=== PATIENT | female | born 1975 | race Caucasian/White ===

== ENCOUNTER 2016-07-05 09:57 | Emergency (ER) | payer OTHER, MEDICAID ==
--- NOTE | 2016-07-05 10:10 | ER Document Report ---
ED Medical Screen (RME) - General Stated Complaint: TOE PAIN Notes: 41 yo female c/o left great toe pain. dropped 37in TV on toe yesterday. painful to move. + soft tissue swelling. no deformity TRAVEL OUTSIDE OF THE [place] IN LAST 30 DAYS: No - Related Data Allergies/Adverse Reactions: No Known Allergies Allergy (Verified 06/23/13 11:26) Past Medical History - Past Medical History Cardiac Medical History: Reports: Hx Hypertension Musculoskeltal Medical History: Reports Hx Arthritis Psychiatric Medical History: Reports: Hx Anxiety, Hx Bipolar Disorder, Hx Depression - anxiety Past Surgical History: Reports: Hx Section - x2, Hx Tubal Ligation - Immunizations Immunizations up to date: Yes Hx Diphtheria, Pertussis, Tetanus Vaccination: Yes - unknown Physical Exam - Vital signs Vitals: Temp Pulse Resp BP Pulse Ox 98.1 F 82 16 113/70 100 07/05/16 10:04 07/05/16 10:04 07/05/16 10:04 07/05/16 10:04 07/05/16 10:04 Course - Vital Signs Vital signs: Temp Pulse Resp BP Pulse Ox 98.1 F 82 16 113/70 100 07/05/16 10:04 07/05/16 10:04 07/05/16 10:04 07/05/16 10:04 07/05/16 10:04
[2016-07-05] MEDS ORDERED: NAPROXEN 375 MG TABLET PO ONE (11:11)
--- NOTE | 2016-07-05 11:11 | ER Document Report ---
ED General - General Chief Complaint: Toe Injury Stated Complaint: TOE PAIN Mode of Arrival: Ambulatory Information source: Patient Notes: Patient is a 41 yo female who presents with 1 day history of left great toe injury. 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 She endorses swelling and bruising. Pain worse with ambulation. She has tried ice, tylenol and ibuprofen with no relief. TRAVEL OUTSIDE OF THE [place] IN LAST 30 DAYS: No - Related Data Allergies/Adverse Reactions: No Known Allergies Allergy (Verified 07/05/16 10:10) Home Medications: Current Home Medications Carisoprodol [Soma] 250 mg PO 07/05/16 [History] [place] Carbonate [Lithobid 150 mg Capsule] 150 mg PO 07/05/16 [History] Past Medical History - Social History Smoking Status: Never Smoker Chew tobacco use (# tins/day): No Frequency of alcohol use: None Drug Abuse: None Family History: Reviewed & Not Pertinent Patient has suicidal ideation: No Patient has homicidal ideation: No - Past Medical History Cardiac Medical History: Reports: Hx Hypertension Renal/ Medical History: Denies: Hx Peritoneal Dialysis Musculoskeltal Medical History: Reports Hx Arthritis Psychiatric Medical History: Reports: Hx Anxiety, Hx Bipolar Disorder, Hx Depression - anxiety Past Surgical History: Reports: Hx Section - x2, Hx Tubal Ligation - Immunizations Immunizations up to date: Yes Hx Diphtheria, Pertussis, Tetanus Vaccination: Yes - unknown Review of Systems - Review of Systems Constitutional: No symptoms reported EENT: No symptoms reported Cardiovascular: No symptoms reported Respiratory: No symptoms reported Gastrointestinal: No symptoms reported Genitourinary: No symptoms reported Female Genitourinary: No symptoms reported Musculoskeletal: See HPI Skin: See HPI Hematologic/Lymphatic: No symptoms reported Neurological/Psychological: No symptoms reported Physical Exam - Vital signs Vitals: Temp Pulse Resp BP Pulse Ox 98.1 F 82 16 113/70 100 07/05/16 10:04 07/05/16 10:04 07/05/16 10:04 07/05/16 10:04 07/05/16 10:04 - Notes Notes: PHYSICAL EXAM: CONSTITUTIONAL: Alert and oriented, well-appearing and in no acute distress. HENT: Normocephalic, atraumatic. Moist mucous membranes. HEART: Regular rate and rhythm without murmurs. LUNGS: CTAB and equal. No wheezes, rales or rhonchi. EXTREMITIES: Normal range of motion, no pitting edema. No cyanosis. Cap Refill < 3 seconds. Left great toe and 2nd toe - tender to palpation at MTP joint with ecchymosis noted between 1st and 2nd digit. ROM intact with flexion and extension of toes, distal pulses intact. NEURO: Cranial nerves grossly intact. Normal sensory/motor exams. SKIN: Warm and dry. Normal turgor. No rashes or lesions noted. Course - Re-evaluation Re-evalutation: 07/05/16 11:11 Patient seen and examined. Ecchymosis present but no obvious deformity. Xrays pending. 07/05/16 11:33 Reviewed xrays - hairline non-displaced acute fracture through tuft of great toe distal phalanx. Reviewed with patient. Will provide splint/post-op shoe, pain medication and discussed orthopedics follow-up. Discharged home in stable condition. Follow-up instructions provided, return precautions discussed. Patient in verbal agreement with follow-up plan. - Vital Signs Vital signs: Temp Pulse Resp BP Pulse Ox 98.1 F 82 16 113/70 100 07/05/16 10:04 07/05/16 10:04 07/05/16 10:04 07/05/16 10:04 07/05/16 10:04 - Diagnostic Test Radiology reviewed: Image reviewed, Reports reviewed Procedures - Immobilization Left Foot Pre-Proc Neuro Vasc Exam: Normal Immobilizer type: Post-op shoe Performed by: PCT Post-Proc Neuro Vasc Exam: Normal Alignment checked and good: Yes Discharge - Discharge Clinical Impression: Fracture of distal phalanx of toe of left foot Condition: Stable Disposition: HOME, SELF-CARE Additional Instructions: Fractured Toe You have fractured your toe. Although this fracture doesn't need a cast or splint, emergency evaluation was needed to assess the straightness of the bones and joints. Reduction ("setting") is necessary for toe fractures which are crooked or twisted. A toe fracture will heal in about three weeks. Usually, the fractured toe is taped to the next toe. The second toe acts as a moving splint to protect the broken one. Ice and elevation help during the first 48 hours. You may need crutches at first if walking is painful. When you begin walking, be careful NOT to do things that hurt. If weight bearing is not comfortable within a few days, you may require a special shoe, walking boot, or cast. Call the doctor or return at once if severe swelling, severe pain, or numbness develop in the toe, or if you suspect you may have re-injured it. Narcotic Medication You have been given a prescription for pain control. This medication is a narcotic. It's best taken with food, as nausea can result if taken on an empty stomach. Don't operate machinery or drive within six hours of taking this medication. Do not combine this medicine with alcohol, or with any medication which can cause sedation (such as cold tablets or sleeping pills) unless you get permission from the physician. Narcotics tend to cause constipation. If possible, drink plenty of fluids and eat a diet high in fiber and fruits. Please be aware that prescription narcotics also have the potential for abuse. People become addicted to these medications because of the general sense of wellbeing that they induce. This feeling along with a significant reduction in tension, anxiety, and aggression provides a stimulating seductive quality to these drugs. Once your pain is under control, we encourage you to discard your unused narcotics. Use of Crutches The doctor has recommended that you not bear weight at this time. You will need to use crutches. Adjust the crutches so the tops come to about two inches under the armpit while you are standing upright. Use your hands -- not your armpits -- to support your weight. To get into a chair, support yourself with one crutch on the injured side. Hold the chair with the other hand, then lower yourself while putting all your weight on the good leg. Going up stairs is `good leg up, step up, then bring up crutches and bad leg.' Down stairs is `bad leg and crutches down, then bring good leg down.' If you develop numbness or swelling in an arm or hand, you are using the crutches incorrectly. Return if you are having any problems with the crutches. Follow-Up Care Call the local orthopedics office (contact information as been provided for you) to schedule follow-up appointment in the next 1-2 days. You should return if there is unexpected worsening or a significant change in your symptoms. Prescriptions: Hydrocodone/Acetaminophen [[place] 5-325 mg Tablet] 1 tab PO Q6H PRN #10 tablet PRN Reason: Pain Scale Of 4 Referrals: KIMBERLY GILMORE MD [ACTIVE STAFF] - Follow up in 3-5 days (Call today to schedule follow-up appointment. )
[2016-07-05 12:04] VITALS: BP 139/88
== END 2016-07-05 12:20 | disposition home or self-care (01) ==
LOC: ER 09:57
DX: S92.425A Nondisplaced fracture of distal phalanx of left great toe, initial encounter for closed fracture (principal); W20.8XXA Other cause of strike by thrown, projected or falling object, initial encounter; I10 Essential (primary) hypertension; Z98.51 Tubal ligation status
CPT/HCPCS: 99283; 73630; J3490

== ENCOUNTER 2016-07-07 12:23 | Emergency (ER) | payer OTHER, MEDICAID ==
[2016-07-07 12:27] VITALS: BP 130/86
--- NOTE | 2016-07-07 12:57 | ER Document Report ---
ED Medical Screen (RME) - General Stated Complaint: FOOT PAIN Notes: Patient states she was seen 3 days ago and has a toe fracture. Was given [place] , and is out of pain medications. No new injury. has an appointment with orthopedics on July 12. Patient has been prescribed tramadol with [address] Beltre since seen in the emergency room. I have greeted and performed a rapid initial assessment of this patient. A comprehensive ED assessment and evaluation of the patient, analysis of test results and completion of the medical decision making process will be conducted by additional ED providers. TRAVEL OUTSIDE OF THE [place] IN LAST 30 DAYS: No - Related Data Allergies/Adverse Reactions: No Known Allergies Allergy (Verified 07/07/16 12:54) Past Medical History - Past Medical History Cardiac Medical History: Reports: Hx Hypertension Renal/ Medical History: Denies: Hx Peritoneal Dialysis Musculoskeltal Medical History: Reports Hx Arthritis Psychiatric Medical History: Reports: Hx Anxiety, Hx Bipolar Disorder, Hx Depression - anxiety Past Surgical History: Reports: Hx Section - x2, Hx Tubal Ligation - Immunizations Immunizations up to date: Yes Hx Diphtheria, Pertussis, Tetanus Vaccination: Yes - unknown Physical Exam - Vital signs Vitals: Temp Pulse Resp BP Pulse Ox 98.3 F 67 14 130/86 H 98 07/07/16 12:27 07/07/16 12:07/07/16 12:07/07/16 12:27 07/07/16 12:27 - Extremities Notes: Mild edema noted to left great toe. No bruising at distal toe where pt states fx is. There is some bruising at the base of the first and second toe on top of foot. Course - Vital Signs Vital signs: Temp Pulse Resp BP Pulse Ox 98.3 F 67 14 130/86 H 98 07/07/16 12:27 07/07/16 12:27 07/07/16 12:27 07/07/16 12:27 07/07/16 12:27
--- NOTE | 2016-07-07 15:45 | ER Document Report ---
ED Extremity Problem, Lower - General Chief Complaint: Foot Injury Stated Complaint: FOOT PAIN Time seen by provider: 15:32 Mode of Arrival: Ambulatory Information source: Patient Notes: 41-year-old female presents to ED for continued pain in her left great toe. She was in the emergency room 3 days ago for a fracture of her left great toe tuft. She states she was only given 10 of the [place] when she was seen on the . She states she cannot get into orthopedics until July 12. She is requesting more [place] for her toe pain. Patient received a prescription for tramadol 50 mg 20 pills with 4 refills on 07/03/2016. TRAVEL OUTSIDE OF THE [place] IN LAST 30 DAYS: No - HPI Patient complains to provider of: Injury, Pain Location: Great Toe - Left Occurred: Other - July 05 Where: Home Onset/Duration: Persistent Quality of pain: Sharp, Throbbing Severity: Severe Pain Level: 5 Context: Other - TV fell on her great toe on July 05 Recent injury: Yes Associated symptoms: Other - Pain continues in her great toe states she is out of her [place] Exacerbated by: Movement, Walking Relieved by: Elevation, Ice, Rest - Related Data Allergies/Adverse Reactions: No Known Allergies Allergy (Verified 07/07/16 12:54) Past Medical History - General Information source: Patient - Social History Smoking Status: Current Every Day Smoker Cigarette use (# per day): Yes Chew tobacco use (# tins/day): No Smoking Education Provided: Yes - less than 2 minutes Frequency of alcohol use: None Drug Abuse: None Lives with: Family Family History: Reviewed & Not Pertinent Patient has suicidal ideation: No Patient has homicidal ideation: No - Past Medical History Cardiac Medical History: Reports: Hx Hypertension Pulmonary Medical History: Reports: None EENT Medical History: Reports: None Neurological Medical History: Reports: None Endocrine Medical History: Reports: None Renal/ Medical History: Reports: None Malignancy Medical History: Reports: None GI Medical History: Reports: None Musculoskeltal Medical History: Reports Hx Arthritis, Reports Hx Musculoskeletal Trauma - Left great toe fracture July 05 Skin Medical History: Reports None Psychiatric Medical History: Reports: Hx Anxiety, Hx Bipolar Disorder, Hx Depression - anxiety Traumatic Medical History: Reports: Hx Fractures - Left great toe Infectious Medical History: Reports: None Past Surgical History: Reports: Hx Section - x2, Hx Tubal Ligation - Immunizations Immunizations up to date: Yes Hx Diphtheria, Pertussis, Tetanus Vaccination: Yes - unknown Review of Systems - Review of Systems Constitutional: No symptoms reported EENT: No symptoms reported Cardiovascular: No symptoms reported Respiratory: No symptoms reported Gastrointestinal: No symptoms reported Genitourinary: No symptoms reported Female Genitourinary: No symptoms reported Musculoskeletal: Other - Left great toe tender swelling Skin: Other - Minimal bruising to left great toe Hematologic/Lymphatic: No symptoms reported Neurological/Psychological: No symptoms reported -: Yes All other systems reviewed and negative Physical Exam - Vital signs Vitals: Temp Pulse Resp BP Pulse Ox 98.3 F 67 14 130/86 H 98 07/07/16 12:27 07/07/16 12:27 07/07/16 12:27 07/07/16 12:27 07/07/16 12:27 Interpretation: Normal - General General appearance: Appears well, Alert - HEENT Head: Normocephalic, Atraumatic Eyes: Normal Pupils: PERRL - Respiratory Respiratory status: No respiratory distress Chest status: Nontender Breath sounds: Normal Chest palpation: Normal - Cardiovascular Rhythm: Regular Heart sounds: Normal auscultation Murmur: No - Abdominal Inspection: Normal Distension: No distension Bowel sounds: Normal Tenderness: Nontender Organomegaly: No organomegaly - Back Back: Normal, Nontender - Extremities General upper extremity: Normal inspection, Nontender, Normal color, Normal ROM , Normal temperature General lower extremity: Normal inspection, Nontender, Normal color, Normal ROM , Normal temperature, Normal weight bearing. No: Junior's sign - Neurological Neuro grossly intact: Yes Cognition: Normal Orientation: AAOx4 [place] Coma Scale Eye Opening: Spontaneous [place] Coma Scale Verbal: Oriented [place] Coma Scale Motor: Obeys Commands [place] Coma Scale Total: 15 Speech: Normal Motor strength normal: LUE, RUE, LLE, RLE Sensory: Normal - Psychological Associated symptoms: Normal affect, Normal mood - Skin Skin Temperature: Warm Skin Moisture: Dry Skin Color: Normal, Ecchymosis - Minimal left great toe Irregularity with: Swelling - Minimal left great toe, Tenderness Course - Re-evaluation Re-evalutation: 07/07/16 15:53 Reviewed patient's x-ray with her from 3 days ago. Then reviewed her medication that she received on the eighth. And then I reviewed her prescriptions for refill for Ultram on 07/03/2016. I informed patient I was not able to give her anymore narcotics for her fractured toe from on the eighth. Encourage patient to use elevation and ice and rest her toe for her complaint. Patient to keep her appointment with orthopedics. - Vital Signs Vital signs: Temp Pulse Resp BP Pulse Ox 98.3 F 67 14 130/86 H 98 07/07/16 12:27 07/07/16 12:27 07/07/16 12:27 07/07/16 12:27 07/07/16 12:27 Discharge - Discharge Clinical Impression: Fracture of distal phalanx of toe of left foot Condition: Stable Disposition: HOME, SELF-CARE Additional Instructions: You were seen today for continued pain in your left great toe from the fracture 4 days ago. You have a prescription of tramadol that she received from Dr. Beltre 50 mg 20 over them with 4 refills I cannot give you more narcotics. ICE & ELEVATION: Apply ice packs frequently against the painful area. Many different schedules are recommended, such as "20 minutes on, 20 minutes off" or "one hour ice, two hours rest." If you need to work, you may need to go longer between ice treatments. You should plan to have the area ice packed AT LEAST one- fourth of the time. The ice should be applied over the wrap, tape, or splint, or over a layer of cloth -- not directly against the skin. Some ice bags have a built-in cloth and can be put directly on the skin. Your injured part should be elevated as much as possible over the next 48 hours. Try to keep the injury above the level of the heart. Avoid use of the injured area. Elevation and rest will decrease the swelling. USE OF [id number] IBUPROFEN: Ibuprofen (Advil, Nuprin, Medipren, Motrin IB) is a medication for fever and pain control. In addition, it has anti- inflammatory effects which may be beneficial, especially in the treatment of injuries. It's best to take ibuprofen with food. Persons with ulcer disease or allergy to aspirin should notify their physician of this before taking ibuprofen. Ibuprofen can be given every four to six hours, for a total of four doses daily. Age Pain or fever dose Antiinflammatory dose 6-8 yr 200 mg (1 tab) 200 mg (1 tab) 9-11 yr 200 mg (1 tab) 200-400 mg (1-2 tab) 11-14 yr 200-400 mg (1-2 tab) 400 mg (2 tab) 15-adult 400 mg (2 tab) 600 mg (3 tab) FOLLOW-UP CARE: If you have been referred to a physician for follow-up care, call the physician s office for an appointment as you were instructed or within the next two days. If you experience worsening or a significant change in your symptoms, notify the physician immediately or return to the Emergency Department at any time for re-evaluation.
== END 2016-07-07 15:49 | disposition home or self-care (01) ==
LOC: ER 12:23
DX: S92.422A Displaced fracture of distal phalanx of left great toe, initial encounter for closed fracture (principal); W20.8XXA Other cause of strike by thrown, projected or falling object, initial encounter; I10 Essential (primary) hypertension; F17.210 Nicotine dependence, cigarettes, uncomplicated; Z71.6 Tobacco abuse counseling
CPT/HCPCS: 99283

== ENCOUNTER → 2017-01-16 | Outpatient (CLI) | payer MEDICAID, OTHER ==
[2017-01-16 10:10] LABS: ABSOLUTE BASOPHILS # (AUTO) 0.1 10^3/uL (0.0-0.2); ABSOLUTE LYMPHOCYTES (AUTO) 2.3 10^3/uL (0.5-4.7); ABSOLUTE MONOCYTES (AUTO) 0.3 10^3/uL (0.1-1.4); ABSOLUTE NEUT (AUTO) 4.6 10^3/uL (1.7-8.2); BASOPHILS % (AUTO) 0.8 % (0-2); EOSINOPHILS % (AUTO) 0.1 % (0-6); HEMATOCRIT 40.2 % (36.0-47.0); HEMOGLOBIN 13.8 g/dL (12.0-15.5); HGB HCT DIFFERENCE 1.2; LYMPHOCYTES % (AUTO) 31.8 % (13-45); MEAN CORPUSCULAR HEMOGLOBIN 31.6 pg (27.0-33.4); MEAN CORPUSCULAR HGB CONC 34.2 g/dL (32.0-36.0); MEAN CORPUSCULAR VOLUME 92 fl (80-97); MONOCYTES % (AUTO) 3.7 % (3-13); RED BLOOD COUNT 4.35 10^6/uL (3.72-5.28); RED CELL DISTRIBUTION WIDTH 15.7 % (11.5-14.0); SEGMENTED NEUTROPHILS % (AUTO) 63.6 % (42-78); WHITE BLOOD COUNT 7.3 10^3/uL (4.0-10.5)
[2017-01-16 10:38] LABS: ALANINE AMINOTRANSFERASE 13 U/L (9-52); ALBUMIN 3.8 g/dL (3.5-5.0); ALKALINE PHOSPHATASE 55 U/L (38-126); ANION GAP 11 (5-19); ASPARTATE AMINO TRANSFERASE 13 U/L (14-36); BILIRUBIN,DIRECT 0.3 mg/dL (0.0-0.4); BILIRUBIN,TOTAL 0.3 mg/dL (0.2-1.3); BLOOD UREA NITROGEN 11 mg/dL (7-20); CALCIUM 9.4 mg/dL (8.4-10.2); CARBON DIOXIDE 25 mmol/L (22-30); CHLORIDE 103 mmol/L (98-107); CREATININE RESULT 0.92 mg/dL (0.52-1.25); GLUCOSE 94 mg/dL (75-110); LITHIUM 0.4 mEq/L (0.6-1.2); POTASSIUM 4.7 mmol/L (3.6-5.0); SODIUM 138.6 mmol/L (137-145); TOTAL PROTEIN 6.2 g/dL (6.3-8.2)
== END ==
LOC: OD 09:11
PROVIDERS: ATTEND Psychiatry & Neurology Psychiatry
DX: F31.32 Bipolar disorder, current episode depressed, moderate (principal)
CPT/HCPCS: 36415; 80053; 80178; 84443; 85025

== ENCOUNTER 2017-12-29 21:54 | Emergency (ER) | payer MEDICAID, OTHER ==
[2017-12-29] MEDS ORDERED: PROMETHAZINE HCL 25 MG TABLET PO ONE (23:55)
[2017-12-29] MEDS ORDERED: KETOROLAC TROMETHAMINE INJ/PF 30 MG/1 ML SDV IM ONE (23:55)
--- NOTE | 2017-12-30 | ER Document Report ---
ED General - General Chief Complaint: Back Pain Stated Complaint: BACK PAIN Time Seen by Provider: 12/29/17 23:38 Notes: Patient is a 42-year-old female presents with complaint of back pain. She says she has history of chronic back pain due to being in the [employer]. She is no longer in the [employer] but says she easily hurts her back because of previous injuries. She said she just moved here yesterday from [facility]. She says she [facility]. She says works in a week ago she was moving stuff and pulled her back. She said she strained her upper middle and lower back. She had x-rays at that time and everything was negative. She was given a prescription for hydrocodone. She said tonight she was moving stuff again and re-hurt her back. She says she took her last hydrocodone this afternoon and says that she needs something more for pain. She says she will take Naprosyn at home. She said she is allergic to ibuprofen. She is allergic to tramadol. She initially tells me she is also allergic to Toradol. She denies any weakness or numbness into her legs. She says it hurts to walk but she is able to walk. No loss of bowel control. No urinary retention. No blunt trauma to her back. No other complaints at this time. TRAVEL OUTSIDE OF THE [place] IN LAST 30 DAYS: No - Related Data Allergies/Adverse Reactions: aripiprazole [From Abilify] Allergy (Verified 12/29/17 22:02) carbamazepine [From Tegretol] Allergy (Verified 12/29/17 22:02) ibuprofen Allergy (Verified 12/29/17 22:02) tramadol Allergy (Verified 12/29/17 22:02) Past Medical History - Social History Smoking Status: Unknown if Ever Smoked Frequency of alcohol use: None Drug Abuse: None Family History: Reviewed & Not Pertinent - Past Medical History Cardiac Medical History: Reports: Hx Hypertension Renal/ Medical History: Denies: Hx Peritoneal Dialysis Musculoskeletal Medical History: Reports Hx Arthritis, Reports Hx Musculoskeletal Trauma - Left great toe fracture July 05 Psychiatric Medical History: Reports: Hx Anxiety, Hx Bipolar Disorder, Hx Depression - anxiety Traumatic Medical History: Reports: Hx Fractures - Left great toe Past Surgical History: Reports: Hx Section - x2, Hx Tubal Ligation - Immunizations Immunizations up to date: Yes Hx Diphtheria, Pertussis, Tetanus Vaccination: Yes - unknown Review of Systems - Review of Systems Notes: My Normal Review Basic REVIEW OF SYSTEMS: CONSTITUTIONAL : Denies fever, chills, or sweats. Denies recent illness. GASTROINTESTINAL: Denies abdominal pain. Denies nausea, vomiting, or diarrhea. GENITOURINARY: Denies difficulty urinating, painful urination, burning, frequency, or blood in urine. MUSCULOSKELETAL: back pain. SKIN: Denies rash or skin lesions. NEUROLOGICAL: Denies sensory or motor loss. ALL OTHER SYSTEMS REVIEWED AND NEGATIVE. Physical Exam - Vital signs Vitals: Temp Pulse Resp BP Pulse Ox 97.6 F 126 H 20 115/78 99 12/29/17 22:26 12/29/17 22:26 12/29/17 22:26 12/29/17 22:12/29/17 22:26 - Notes Notes: General Appearance: Well nourished, alert, cooperative, no acute distress, mild obvious discomfort. Vitals: reviewed, See vital signs table. Eyes: PERRL, EOMI, Conjuctiva clear Mouth: No decreasd moisture Neck: Supple, no neck tenderness, no obvious muscle tension or spasm over cervical paraspinal musculature or trapezius muscles. Back: Patient is back exam is a little bit atypical in that she complains of pain up and down her entire back. While she is talking I am palpating her back and pushing fairly firmly and hard. She never went to this with pain and never says our says it hurts. Visual over the mid spine and there is no pain. When I then asked her to tell me if it hurts when I push she then starts wincing and saying hurts very badly when she is focusing on me pushing on her back; however , when she is not focusing on the fact and pushing on her back she does not seem to have any pain whatsoever. There is no obvious muscle tension or spasm on my exam on thoracic nor lumbar spine. Extremities: strength 5/5 in all extremities, good pulses in all extremities, no swelling or tenderness in the extremities, no edema. She is able stand and walk. She does slump forward slightly as she walks. No foot drop. Skin: warm, dry, appropriate color, no rash Neuro: speech clear, oriented x 3, normal affect, responds appropriately to questions. Distal sensation intact. Course - Re-evaluation Re-evalutation: 12/30/17 01:40 I do not feel the patient needs repeat x-rays being that she had no blunt trauma to her back and she just recently had x-rays earlier this week which were negative. She has no concerning neurologic findings on exam. She is able stand and walk. She has no weakness or numbness into her legs. She has no bowel or bladder symptoms. I informed the patient that I am concerned that she received many narcotic prescriptions over the last couple of months. Patient's story is very inconsistent which is also concern for me. When I asked her what she takes for pain she did admit that she did take hydrocodone that was recently prescribed to her on December 27. She initially denied to me that she is routinely on opiates. She said she did have some opiates that were prescribed for before she had her hysterectomy and just after she had a hysterectomy in September. In reviewing her with [place] controlled substance database she has had a total of 14 opiate prescription since June of this year. 7 of those opiate prescriptions have occurred starting in September until now. I tried to approach patient and inform her my concerns about this. I informed her that my concern is that her body has become dependent on these medications to the point where things such as recurrent back pain or other injuries cause her to immediately feel that the only way to control pain is with opiates. I informed her that the continued up regulation of her opiate receptors causes her pain to become worse and make it harder for her to heal from such injuries. I explained to her that because of this I think it is unwise to continue to prescribe opiate medications as it will only do her more harm and not any good. Despite my explanation of this the patient continued to argue with me over this and continue to request opiate medications over and over again. She eventually requested that I order a shot of an opiate medication since I would not be willing to write her prescription. I informed her that this is continuing the same process and I do not think is appropriate for her. I asked her if she is allergic to Toradol being she has Ibuprofen on her allergy list. She does have ibuprofen and tramadol listed as allergies. She told me that she cannot take Toradol because it causes to have severe vomiting and feel unwell. I informed her that I did not feel that there is an appropriate injectable pain medicine to give her at this time that I would prefer to prescribe her muscle relaxer such as Skelaxin and have her take Naprosyn and Tylenol at home. Patient then informed me that she can take Toradol if she receives Phenergan. I informed her I would give her Phenergan. When the nurse went to give her the Phenergan she became very upset at the nurse because the nurse did not give her an injected form of Phenergan. I do not see why she would need the injected form of Phenergan as she is not at all vomiting or nauseous at this time. Giving the Phenergan injection would only cause a side effect of more euphoria which I do not think is needed in this case. I again did my best to explain to the patient that continued opiate use for chronic recurring pain is not appropriate and would only cause her more harm than good. I continue to inform her that I am doing what I feel is best for her despite the patient's continued requesting opiate medications. Also I am concerned that on her physical exam the patient really did not initially show any signs of pain when I was initially palpating her back as she was talking and not concentrating on the fact that I was actually pushing on her back. It was not until I informed her that I was pushing on her back that she started saying that she was having a lot of pain and wincing. Patient is tachycardic upon arrival. I think this is a result of her having her last opiate medication early this after noon and she most likely start have some withdrawal effect. I do not doubt that the patient does have some pain however I did not think it is appropriate to continue use opiate medications for the reasons described above as I think they will do the patient more harm than good. Patient was discharged home but is encouraged to return to ER if she has worsening pain, leg weakness, loss of bowel control, urinary retention, or if she has any further concerns. Dictation of this chart was performed using voice recognition software; therefore, there may be some unintended grammatical errors. - Vital Signs Vital signs: Temp Pulse Resp BP Pulse Ox 97.6 F 126 H 20 115/78 99 12/29/17 22:26 12/29/17 22:26 12/29/17 22:26 12/29/17 22:26 12/29/17 22:26 Discharge - Discharge Clinical Impression: Back pain Qualifiers: Back pain location: back pain in unspecified location Chronicity: acute Back pain laterality: bilateral Qualified Code(s): M54.9 - Dorsalgia, unspecified Condition: Good Disposition: HOME, SELF-CARE Additional Instructions: Please take the medicine as prescribed. Continue to take Naprosyn with food at home. Please take tylenol 500mg every 4 hours to help with pain. Call the [facility] to make a close follow up appointment. please return to the ER immediately if you develop loss of bowel control, inability to urinate, increasing leg weakness or numbness, or if you have further concerns. Prescriptions: Metaxalone [Skelaxin 800 mg Tablet] 800 mg PO ASDIR PRN #20 tablet PRN Reason: Referrals: EDNA ADAMSON MD [NO LOCAL MD] - 01/01/18
[2017-12-30 04:07] VITALS: BP 138/92
== END 2017-12-30 00:44 | disposition home or self-care (01) ==
LOC: ER 21:54
DX: M54.9 Dorsalgia, unspecified (principal); G89.29 Other chronic pain; X50.9XXA Other and unspecified overexertion or strenuous movements or postures, initial encounter; I10 Essential (primary) hypertension
CPT/HCPCS: 99283; 96372; J1885

== ENCOUNTER 2018-01-24 08:18 | Emergency (ER) | payer OTHER ==
[2018-01-24] MEDS ORDERED: CYCLOBENZAPRINE HCL 10 MG TABLET PO ONE (08:59)
[2018-01-24] MEDS ORDERED: ONDANSETRON 4 MG TAB.RAPDIS PO ONE (08:59)
[2018-01-24] MEDS ORDERED: KETOROLAC TROMETHAMINE 60 MG/2 ML SDV IM ONE (08:59)
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
[2018-01-24 09:45] VITALS: BP 124/78
== END 2018-01-24 09:50 | disposition home or self-care (01) ==
LOC: ER 08:18
DX: M54.6 Pain in thoracic spine (principal); M54.2 Cervicalgia; M62.830 Muscle spasm of back; X50.0XXA Overexertion from strenuous movement or load, initial encounter; Y93.89 Activity, other specified; F17.200 Nicotine dependence, unspecified, uncomplicated; I10 Essential (primary) hypertension; Z88.8 Allergy status to other drugs, medicaments and biological substances; Z88.6 Allergy status to analgesic agent; Z88.5 Allergy status to narcotic agent
CPT/HCPCS: 99283; 96372; J1885; S0119

== ENCOUNTER 2018-06-24 22:17 | Emergency (ER) | payer OTHER ==
[2018-06-25] MEDS ORDERED: PENICILLIN V POTASSIUM 500 MG TABLET PO ONE (01:45)
--- NOTE | 2018-06-25 01:50 | ER Document Report ---
HPI - HPI Patient complains to provider of: gum pain Time Seen by Provider: 06/25/18 01:45 Pain Level: 4 Context: Overall well-appearing 43-year-old female with false teeth presents emergency department for gum pain and infection of her lower jaw. She is not been able to wear her lower dentures because of the pain she states they do not fit well anymore. She has not worn them today and she is having to call to eating because it hurts too much. She denies any fever, chills, nausea, vomiting, purulent discharge from the site. - REPRODUCTIVE Reproductive: DENIES: : Past Medical History - Social History Smoking Status: Unknown if Ever Smoked Family History: Reviewed & Not Pertinent Patient has suicidal ideation: No Patient has homicidal ideation: No - Past Medical History Cardiac Medical History: Reports: Hx Hypertension Renal/ Medical History: Denies: Hx Peritoneal Dialysis Musculoskeletal Medical History: Reports Hx Arthritis, Reports Hx Musculoskele truman Trauma - Left great toe fracture July 05 Psychiatric Medical History: Reports: Hx Anxiety, Hx Bipolar Disorder, Hx Depression - anxiety Traumatic Medical History: Reports: Hx Fractures - Left great toe Past Surgical History: Reports: Hx Section - x2, Hx Tubal Ligation - Immunizations Immunizations up to date: Yes Hx Diphtheria, Pertussis, Tetanus Vaccination: Yes - unknown Vertical Provider Document - INFECTION CONTROL TRAVEL OUTSIDE OF THE [place] IN LAST 30 DAYS: No - HEENT HEENT: Atraumatic, Normocephalic Mouth Diagram: 1 - No teeth present, left side of mouth the gum is infected and swollen. Uvula is midline and there is no evidence of peritonsillar abscess. There is no fluctuant area noted at the gum so no evidence of abscess. - NECK Neck: Normal Inspection, Supple. negative: Lymphadenopathy-Left, Lymphadenopathy-Right Course - Re-evaluation Re-evalutation: 06/25/18 01:49 Overall well-appearing female with no trismus, uvular deviation, or evidence of abscess. I do not suspect peritonsillar abscess or deep space tissue infection. Plan to give her pen VK 500 mg 4 times per day for 7 days. I told her she needs strict follow-up with dental. - Vital Signs Vital signs: Temp Pulse Resp BP Pulse Ox 98.3 F 72 16 114/82 99 06/24/18 23:25 06/24/18 23:25 06/24/18 23:25 06/24/18 23:25 06/24/18 23:25 Discharge - Discharge Clinical Impression: Superficial injury of gum with infection Qualifiers: Encounter type: initial encounter Qualified Code(s): S00.502A - Unspecified superficial injury of oral cavity, initial encounter; K05.10 - Chronic gingivitis, plaque induced Condition: Good Disposition: HOME, SELF-CARE Additional Instructions: You have been seen for dental pain. It is very important that you follow-up with a dentist for definitive care. Please return if you develop fever greater than 101, swelling in your face, vomiting, difficulty breathing or swallowing, or any other symptoms that are concerning to you. For pain you should take ibuprofen 600 mg every 6 hours as needed. Prescriptions: Penicillin V Potassium [Penicillin Vk 500 mg Tablet] 500 mg PO QID #28 tablet
[2018-06-25 01:58] VITALS: BP 120/81
== END 2018-06-25 02:00 | disposition home or self-care (01) ==
LOC: ER 22:17
DX: S00.502A Unspecified superficial injury of oral cavity, initial encounter (principal); R68.84 Jaw pain; X58.XXXA Exposure to other specified factors, initial encounter; I10 Essential (primary) hypertension
CPT/HCPCS: 99282